=== PATIENT | female | born 1935 | race Caucasian/White ===

== ENCOUNTER 2024-09-27 13:42 | Inpatient (IN) | payer OTHER, MEDICARE, SELFPAY ==
[2024-09-27 14:27] VITALS: BP 147/84; PULSE 88; RESP 18; TEMP 36.9; O2SAT 95; BMI 31.2
--- NOTE | 2024-09-27 14:38 | EKG_ITS ---
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1935 Requested By: Syeda Mata ([facility]) Yazmin Order Number: [id number] Reading MD: Syeda Mata ([facility]) Yazmin Measurements Intervals [place] Rate: 96 P: 37 CA: 172 QRS: -57 QRSD: 129 T: 117 QT: 399 QTc: 505 Interpretive Statements SINUS RHYTHM LEFT ANTERIOR FASCICULAR BLOCK [QRS AXIS <= -45, QR IN I, RS IN II] LEFT VENTRICULAR HYPERTROPHY AND ST-T CHANGE [VOLTAGE CRITERIA PLUS ST/T ABNORMALITY] POSSIBLE ANTEROSEPTAL MYOCARDIAL INFARCTION , POSSIBLY ACUTE [30 ms Q WAVE IN V1-V4] ACUTE VA Compared to ECG 03/12/2024 15:07:56 Left anterior fascicular block now present Sinus bradycardia no longer present Left-axis deviation no longer present ST (T wave) deviation still present Myocardial infarct finding still present /store/S0/[id number].pdf
--- NOTE | 2024-09-27 14:38 | XR_ITS ---
Examination: PA chest single view TECHNIQUE: Upright PA chest single view Exam date and time: September 27, 2024 1443 hours INDICATIONS: Onset chest pain today. FINDINGS: The film is mislabeled right to left Mild heart failure Mild enlargement cardiac contour with prominent vascular congestion and perihilar basilar edema Moderate osteopenia IMPRESSION: Mild CHF
--- NOTE | 2024-09-27 14:38 | PD.EDRME ---
Rapid Medical Screening Exam RME Arrival date/time: 09/27/24 13:42 89-year-old female presents to the emergency department complaints of shortness of breath, chest pain 3 days. I have greeted and performed a focused initial assessment of this patient. Initial appropriate labs ordered at this time. A comprehensive ED assessment and evaluation of the patient and analysis of all test and completion of medical decision making process will be conducted by additional ED provider. Chief Complaint: Shortness of Breath/Dyspnea Time Seen by Provider: 09/27/24 13:59 Vital signs: Vital Signs Temperature 98.5 F 09/27/24 14:27 Pulse Rate 88 09/27/24 14:27 Respiratory Rate 18 09/27/24 14:27 Blood Pressure 147/84 H 09/27/24 14:27 Pulse Oximetry (%) 95 09/27/24 14:27 Oxygen Delivery Method Room Air 09/27/24 14:27
[2024-09-27 15:15] LABS: Basophils # (Auto) 0.1 Thou/mm3 (0.0-0.2); Basophils % (Auto) 1 % (0-2.5); Eosinophils # (Auto) 0.1 Thou/mm3 (0.0-0.5); Eosinophils % (Auto) 1 % (0-10); Hematocrit 30.9 % (36.0-46.0); Hemoglobin 10.2 g/dL (12.0-16.0); Immature Granulocytes % (Auto) 1 % (0-0); Immature Granulocytes Auto 0.08 Thou/mm3 (0.00-0.00); Lymphocytes # (Auto) 0.6 Thou/mm3 (1.0-4.8); Lymphocytes % (Auto) 5 % (10-50); Mean Corpuscular Volume 61 fL (80-100); Monocytes # (Auto) 1.1 Thou/mm3 (0.0-0.8); Monocytes % (Auto) 10 % (0-12); Neutrophils # (Auto) 8.7 Thou/mm3 (1.8-7.7); Neutrophils % (Auto) 82 % (37-80); Nucleated Red Blood Cell # 0.04 Thou/mm3 (0.00-0.00); Nucleated Red Blood Cell % 0 /100 WBC (0); Platelet Count 223 Thou/mm3 (140-440); RDW Standard Deviation 34.4 fL (36.4-46.3); Red Blood Count 5.09 Miln/mm3 (4.00-5.20); White Blood Count 10.6 Thou/mm3 (3.6-11.0)
[2024-09-27 15:25] LABS: INR 1.1 (0.9-1.3); Prothrombin Time 11.5 Seconds (9.0-12.2)
[2024-09-27 15:31] LABS: B-Type Natriuretic Peptide > 3280 pg/mL (0-100)
[2024-09-27 15:47] LABS: Alanine Aminotransferase 10 U/L (10-49); Albumin, Serum 4.2 gm/dL (3.4-4.8); Albumin/Globulin Ratio 1.8 (1.2-2.2); Alkaline Phosphatase 54 U/L (46-116); Anion Gap 14 (7-16); Aspartate Amino Transferase 40 U/L (0-34); BUN/Creatinine Ratio 13 Ratio (12-20); Bilirubin,Total 1.6 mg/dL (0.3-1.2); Blood Urea Nitrogen 13 mg/dL (9-23); Calcium 9.5 mg/dL (8.3-10.6); Calcium (Corrected) 9.5 mg/dL (8.5-10.1); Carbon Dioxide 22.6 mMol/L (20.0-31.0); Chloride 105 mMol/L (98-107); Estimated Creatinine Clearance 34.6 mL/min (>60); Globulin 2.3 gm/dL (2.3-3.5); Glucose 112 mg/dL (74-106); Lipase 25 U/L (12-53); Magnesium 1.5 mg/dL (1.6-2.6); Osmolality,Calculated 284 (275-295); Potassium 3.8 mMol/L (3.4-5.1); Sodium 142 mMol/L (136-145); Total Protein 6.5 gm/dL (5.7-8.2); eGFR 54 See Note
[2024-09-27 16:12] LABS: Troponin I 1.354 ng/mL (0.0-0.045)
[2024-09-27 16:49] VITALS: BP 145/85; PULSE 95; RESP 18; TEMP 36.7; O2SAT 95
--- NOTE | 2024-09-27 17:35 | EKG_ITS ---
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: : 1935 Requested By: Yadira Marin Order Number: [id number] Reading MD: Yadira Marin Measurements Intervals [place] Rate: 94 P: 34 RI: 166 QRS: -58 QRSD: 134 T: 123 QT: 405 QTc: 509 Interpretive Statements SINUS RHYTHM POSSIBLE LEFT ATRIAL ENLARGEMENT [-0.1mV P-WAVE IN V1/V2] INTRAVENTRICULAR CONDUCTION DELAY [130+ ms QRS DURATION] LEFT VENTRICULAR HYPERTROPHY AND ST-T CHANGE [VOLTAGE CRITERIA PLUS ST/T ABNORMALITY] POSSIBLE ANTEROSEPTAL MYOCARDIAL INFARCTION , OF INDETERMINATE AGE [30 ms Q WAVE IN V1-V4] Compared to ECG 09/27/2024 14:55:31 Intraventricular conduction delay now present Left anterior fascicular block no longer present ST (T wave) deviation still present Myocardial infarct finding still present /store/S0/[id number].pdf
[2024-09-27 18:10] VITALS: BP 150/95; PULSE 100; RESP 20; TEMP 36.8; O2SAT 95
--- NOTE | 2024-09-27 18:33 | EDNOTE_ITS ---
ED SOB =RME/HPI General Chief Complaint: Shortness of Breath/Dyspnea Stated Complaint: TROUBLE BREATHING Time Seen by Provider: 09/27/24 13:59 Arrival date/time: 09/27/24 13:42 89-year-old female presents to the ED with a complaint of shortness of breath. She has had an ongoing cough. She has also had associated chest pain x3 days that comes at rest and is relieved by changing positions or moving . The pain is described as a dull ache, and is non-radiating. She describes the pain as a 5/10 at its worst, and is currently 0/10. She indicates the pain in the center of her chest has been ongoing and her business law instructor is aware of it. Limitations: no limitations RME / HPI RME / HPI Narrative: 09/27/24 13:42 89-year-old female presents to the emergency department complaints of shortness of breath, chest pain 3 days. I have greeted and performed a focused initial assessment of this patient. Initial appropriate labs ordered at this time. A comprehensive ED assessment and evaluation of the patient and analysis of all test and completion of medical decision making process will be conducted by additional ED provider. Complaint: shortness of breath and cough Onset (ago): day(s) (3) Severity: moderate Consistency/Duration: now resolved Relieving factors: other (Changing position) Exacerbating factors: nothing Associated symptoms: chest pain and cough Treatment prior to arrival: none Related Data Home Medications ?Medication ?Instructions ?Recorded ?Confirmed levothyroxine 75 mcg tablet 75 mcg PO QDAY 11/26/20 atenolol 50 mg tablet 50 mg PO QDAY 03/12/2403/12 Held on 03/13/24. Instructions: Resume on 03/27/24. Hold until follow up with your Client Engagement Manager diltiazem HCl 180 mg 180 mg PO QDAY 03/12/2402/25 capsule,extended release 24 hr Held on 03/13/24. Instructions: Resume on 03/27/24. Hold until follow up with your Client Engagement Manager diltiazem HCl 180 mg mg PO 03/12/24 03/12/24 capsule,extended release 24 hr Held on 03/13/24. Instructions: Resume on 03/27/24. Hold until follow up with your Client Engagement Manager losartan 100 mg tablet 100 mg PO QDAY 03/12/2402/25 oxybutynin chloride 10 mg 10 mg PO QDAY 03/12/2403/12 tablet,extended release 24 hr timolol maleate 0.5 % eye drops drp ophthalmic (eye) 0 03/13/24 Previous Rx's ?Medication ?Instructions ?Recorded sennosides 8.6 mg-docusate sodium 1 tab-cap PO QDAY MT N constipation 11/18/23 50 mg tablet (Colace 2-In-1) #30 tabs aspirin 81 mg tablet,delayed 81 mg PO QDAY #30 tabs release atorvastatin 40 mg tablet 40 mg PO HS #30 tabs 4 clopidogrel 75 mg tablet 75 mg PO QDAY stroke prevent ion 03/13/24 #30 tabs hydralazine 50 mg tablet 50 mg PO TID #90 tabs Allergies Allergy/AdvReac Type Severity Reaction Status Date / Time No Known Allergies Allergy Verified 09/27/24 13:43 Review of Systems Review of Systems Systems Reviewed: All systems reviewed, normal except as documented Constitutional Constitutional: Denies chills Cardiovascular Cardiovascular: Reports as per HPI, Reports chest pain at rest, Reports dyspnea, Reports dyspnea on exertion, Reports leg edema, Denies orthopnea, Denies palpitations and Denies radiating jaw, neck or arm pain Respiratory Respiratory: Reports as per HPI, Reports cough, Reports dyspnea and Reports dyspnea on exertion Gastrointestinal Gastrointestinal: Denies constipation, Denies dyspepsia, Denies nausea and Denies vomiting Endocrine Endocrine: Denies palpitations ED Exam General Limitations: Present no limitations General appearance: Present alert and in no apparent distress Head Head exam: Present atraumatic and normocephalic Eye Eye exam: Present normal appearance; Absent conjunctival injection Neck Neck exam: Present normal inspection Chest Chest inspection: Present normal inspection and symmetric chest wall rise; Absent tenderness Expanded Respiratory Exam Location: Left: decreased breath sounds, Right: rhonchi and decreased breath sounds and Lower: rhonchi and decreased breath sounds Cardiovascular Cardiovascular exam: Present regular rate, normal rhythm and normal heart sounds Abdominal Exam Abdominal exam: Present soft and normal bowel sounds; Absent distention or tenderness Extremities Exam Extremities exam: Present pedal edema and other (pitting pretibial edema R>L); Absent calf tenderness Neurological Exam Neurological exam: Present alert and oriented X3 Psychiatric Psychiatric exam: Present normal affect and normal mood Skin Skin exam: Present warm, dry and intact Course Orders Category Date Time Status EKG (ED ONLY) *Do not use* NOW Care 09/27/24 14:38 Completed EKG (ED ONLY) *Do not use* NOW Care 09/27/24 17:36 Completed EKG (ED Only) Stat Exams 09/27/24 14:38 Draft EKG (ED Only) Stat Exams 09/27/24 17:35 Ordered XR chest 1V portable Stat Exams 09/27/24 14:38 Completed B-Type Natriuretic Peptide Stat Lab 09/27/24 14:50 Completed CBC Stat Lab 09/27/24 14:50 Completed Comprehensive Metabolic Panel Stat Lab 09/27/24 14:50 Completed Lipase Stat Lab 09/27/24 14:50 Completed Magnesium Stat Lab 09/27/24 14:50 Completed Prothrombin Time with INR Stat Lab 09/27/24 14:50 Completed Troponin I Stat Lab 09/27/24 14:50 Completed Troponin I Stat Lab 09/27/24 18:12 Received Vital Signs Vital signs: Vital Signs Temperature 98.5 F 09/27/24 14:27 Pulse Rate 88 09/27/24 14:27 Respiratory Rate 18 09/27/24 14:27 Blood Pressure 147/84 H 09/27/24 14:27 Pulse Oximetry (%) 95 09/27/24 14:27 Oxygen Delivery Method Room Air 09/27/24 14:27 Discharge Plan Prescriptions/Referrals Prescriptions/Med Rec: No Action levothyroxine 75 mcg Tablet 75 mcg PO QDAY sennosides-docusate sodium [Colace 2-In-1] 8.6-50 mg tablet 1 tab-cap PO QDAY PRN (Reason: constipation) Qty: 30 0RF oxybutynin chloride 10 mg tablet extended release 24hr 10 mg PO QDAY diltiazem HCl 180 mg capsule,extended release 24hr PO Patient Comments: take 1 capsule by mouth once daily diltiazem HCl 180 mg capsule,extended release 24hr 180 mg PO QDAY losartan 100 mg tablet 100 mg PO QDAY Patient Comments: take 1 tablet by mouth once daily atenolol 50 mg tablet 50 mg PO QDAY timolol maleate 0.5 % drops OPHTHALMIC (EYE) atorvastatin 40 mg tablet 40 mg PO HS Qty: 30 0RF aspirin 81 mg Tablet,Delayed Release (Dr/Ec) 81 mg PO QDAY Qty: 30 0RF hydralazine 50 mg tablet 50 mg PO TID Qty: 90 0RF clopidogrel 75 mg tablet 75 mg PO QDAY Qty: 30 0RF Referrals: Miya Orlando MD [Primary Care Provider] - In 1 week Patient/Caregiver Discharge Instructions Print Language: Mosotho
[2024-09-27 19:40] LABS: Troponin I 1.926 ng/mL (0.0-0.045)
--- NOTE | 2024-09-27 22:53 | ESHP_ITS ---
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 She reported that she has been having difficulty ambulating, for past couple of days and thought of coming to the ED. She is ambulatory at baseline, and get some help from her rod drawer. She also reported that that she has been having on and off chest pain lasting 2 to 3 seconds frequently, and that improves after changing her body position. She denied any orthopnea, headache, any radiating pain towards her left arm, but reported that she fell couple months ago, on her left arm, and after that she has been having left arm pain. She denied any abdominal pain, or any changes in bowel or bladder habit. She denied any fever or chills, nausea or vomiting. In the ED her vitals were stable, with blood pressure 147/84 labs significant for hemoglobin 10.2, MCV 61, chemistry panel revealed creatinine 1.0, GFR 54, blood sugar 112, magnesium 1.5, total bilirubin 1.6, AST 40, troponin 1.354 that trended up to 1.926, BNP greater than 3280, chest x-ray revealed mild CHF and EKG was significant for mild ST segment elevation in V1 and V2, discussed with Dr. Guy, reported that the patient's EKG is significant for recent old CT, but not STEMI. PMH: As mentioned above SHX: Tonsillectomy, cholecystectomy, appendectomy, hysterectomy, bladder suspension surgery, eye surgery Family history: Heart disease Social history: Denies smoking, alcohol or drug abuse. She follows up with channel development manager Dr. Moreno, but he is out of town and Dr. Guy was consulted. He recommended admitting the patient in telemetry unit and starting aspirin 325 mg x 1, Lasix 40 Mg IV x 1, and starting on heparin drip. Review of Systems Review of Systems Systems Reviewed: All systems reviewed, normal except as documented Exam Vital Signs Temp Pulse Resp BP Pulse Ox O2 Del Method 98.3 F 100 20 150/95 H 95 Room Air 09/27/24 18:10 04/03/25 18:10 09/27/24 18:10 09/27/24 18:10 09/27/24 18:10 09/27/24 16:49 Narrative Exam General: No acute distress, Alert and Oriented x 3 HEENT: Moist mucous membranes, oropharynx clear Neck: Supple, No masses, No JVD CVS: S1S2 Regular rate and rhythm, No murmurs, rubs or gallops Lungs: Bibasilar cracles +, no wheeze no rhonchi Abd: Soft, NT/ND, +BS, no organomegaly Ext: 1+ below knee pitting edema, warm and well perfused, diminished peripheral pulses Skin: No rash Psych: Appropriate mood and affect Results: Labs 09/28/24 02:58 09/28/24 02:58 Labs: Short CBC 09/27/24 Range/Units 14:50 WBC 10.6 (3.6-11.0) Thou/mm3 Hgb 10.2 L (12.0-16.0) g/dL Hct 30.9 L (36.0-46.0) % Plt Count 223 (140-440) Thou/mm3 BMP 09/27/24 14:50 Sodium 142 Potassium 3.8 Chloride 105 Carbon Dioxide 22.6 BUN 13 Creatinine 1.0 Glucose 112 H Calcium 9.5 Cardiac Enzymes 09/27/24 09/27/24 Range/Units 14:50 18:12 Troponin I 1.354 H* 1.926 H* D (0.0-0.045) ng/mL Liver Function 09/27/24 Range/Units 14:50 Total Bilirubin 1.6 H (0.3-1.2) mg/dL AST 40 H (0-34) U/L ALT 10 (10-49) U/L Alkaline Phosphatase 54 (46-116) U/L Albumin 4.2 (3.4-4.8) gm/dL Quality Measures Quality Measures VTE prophylaxis Advance care planning discussed with:: patient Medications Home Medications and Allergies Home Medications ?Medication ?Instructions ?Recorded ?Confirmed ?Type levothyroxine 75 mcg tablet 75 mcg PO QDAY 11/26/20 History atenolol 50 mg tablet 50 mg PO QDAY 03/12/2403/12 History Held on 03/13/24. Instructions: Resume on 03/27/24. Hold until follow up with your Casting And Locker Room Servicer diltiazem HCl 180 mg 180 mg PO QDAY 03/12/2402/25 History capsule,extended release 24 hr Held on 03/13/24. Instructions: Resume on 03/27/24. Hold until follow up with your Casting And Locker Room Servicer diltiazem HCl 180 mg mg PO 03/12/24 03/12/24 Hist ory capsule,extended release 24 hr Held on 03/13/24. Instructions: Resume on 03/27/24. Hold until follow up with your Casting And Locker Room Servicer losartan 100 mg tablet 100 mg PO QDAY 03/12/2402/25 History oxybutynin chloride 10 mg 10 mg PO QDAY 03/12/2403/12 History tablet,extended release 24 hr timolol maleate 0.5 % eye drops drp ophthalmic (eye) 0 03/13/24 History Allergies Allergy/AdvReac Type Severity Reaction Status Date / Time No Known Allergies Allergy Verified 09/27/24 13:43 Visit Medications Aspirin (Aspirin Ec 81 Mg Tabec) 81 mg PO HS LUIS Stop: 10/28/24 20:59 Atorvastatin Calcium (Atorvastatin Calcium 10 Mg Tablet) 40 mg PO QDAY LUIS Stop: 10/28/24 08:59 Heparin Sodium (Porcine) (Heparin Sod Inj 5000 Unit/Ml Vial) 4,000 unit IV X1 ONE; Protocol Stop: 09/27/24 22:07 Heparin Sodium/Dextrose (Heparin In D5w Ivpb) 25,000 unit in 250 mls @ 8.709 mls/hr IV .Q24H LUIS; Protocol Stop: 10/11/24 22:14 Magnesium Sulfate (Magnesium Sulfate Ivpb) 4 gm in 50 mls @ 12.5 mls/hr IV X1 ONE Stop: 09/28/24 02:47 Discontinued Medications Aspirin (Aspirin 81 Mg Chew) 324 mg PO X1 ONE Stop: 09/27/24 22:10 Furosemide (Furosemide Inj 10 Mg/Ml 4ml Vial) 40 mg IVP X1 ONE Stop: 09/27/24 22:10 Assessment & Plan Plan The patient is an 89-year-old female with significant past medical history of hyperlipidemia, peripheral vascular disease, essential hypertension, hypothyroidism, IBS, 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 Patient is admitted for further management of ACS. #ACS DDx: More likely NSTEMI versus less likely STEMI with possible multivessel disease The patient presented with worsening of SOB for past couple of days, has been having central chest pain and for last couple of months that improves on reposition, likely NSTEMI 2 to 3 days ago after which she developed SOB. EKG was significant for [address] segment elevation in V1 and V2, but Dr. Guy reported that the patient's EKG is significant for recent old CT, but not STEMI Initial tropes were 1.354 that trended up to 1.926 Received aspirin 325 mg x 1, and was started on heparin drip, received Lasix 40 Mg IV x 1. - Continue on heparin drip - Aspirin 81 Mg daily at night - Atorvastatin 80 Mg daily at night - Beta-zarina not started due to possible new onset CHF exacerbation -Casting And Locker Room Servicer Dr. Guy consulted, will proceed with cardiac cath around 11:30 AM on 09/28/2024 - N.p.o. after midnight - Maintain potassium greater than 4 and magnesium greater than 2 -Daily a.m. labs for CBC, CMP and electrolytes - Troponin every 4 hourly until delta is achieved -TTE ordered -Monitor closely #New onset CHF exacerbation Likely secondary to ischemic cardiomyopathy DDx: HFrEF versus HFpEF, TTE done on 2018 revealed LVEF 60%, no recent echo on EMR Chest x-ray significant for mild CHF, patient complained of SOB on exertion, BNP greater than 3280 - Received Lasix 40 Mg IV x 1, may consider adding further doses after evaluating in the morning -Strict ins and outs - Cardiac diet with fluid restriction of 1200 cc/day - TTE ordered #Mild hypomagnesemia Presented with magnesium of 1.5 - Ordered 4 g IV magnesium sulfate - Daily a.m. labs for magnesium #Microcytic anemia Likely secondary to iron deficiency anemia secondary to possible GI loss versus nutritional deficiency - Ordered, ferritin and reticulocyte count #CKD stage III A Creatinine 1.0, GFR of 54, previous GFR were less than 54 - Renally dose medications - Avoid nephrotoxic drugs - Daily AM lab for CMP and electrolyte panel #Mild hyperbilirubinemia #Mild transaminitis Denies any abdominal symptoms Total bilirubin 1.6, AST 40 - Monitor daily a.m. labs for liver panel #Essential hypertension #PVD #Hyperlipidemia - Started on atorvastatin 80 Mg daily at night - Continue to monitor blood pressure #Hypothyroidism - Resume home medication after medication reconciliation Health maintenance: Dispo: Patient admitted to telemetry unit for further management of ACS Diet: Cardiac diet, n.p.o. after midnight DVT prophylaxis: On heparin drip CODE STATUS: DNR The patient's management plan was discussed with my attending physician MD Chintan Kelly MD, PGY2 Attending Provider Attestation/Addendum I attest that I was physically present for the evaluation, physical examination, lab and imaging review of the patient with the residents. I discussed the case with the residents and agree with the findings and plans of care as documented above. Patient is an 89 years old female with past medical history of hyperlipidemia, peripheral vascular disease, hypertension, hypothyroidism, IBS, right eye blindness, CVA who presented to the ED with complaint of shortness of breath that has been worsening for past couple of days. In the ED, blood pressure was 147/87, hemoglobin 10.2, total bilirubin 1.6, troponin 1.354 which up trended to 1.926, BNP more than 3280. Chest x-ray was done which showed mild CHF. EKG was concerning for mild ST elevation in V1 and V2. Cardiology was consulted by ED, stated that most likely NSTEMI, probable old CT, recommended inpatient admission for medical management. We will admit the patient in telemetry, start her on aspirin, heparin drip, atorvastatin. We will obtain Echocardiography. We will keep patient n.p.o. in anticipation of cardiac catheterization tomorrow. We will trend troponin and monitor her symptoms closely. Repleted magnesium, ordered strict ins and outs, fluid restriction. Patient has mild hyperbilirubinemia, we will follow-up with morning labs. Shaneka Perez MD
[2024-09-27 23:02] VITALS: BMI 29.4
[2024-09-27 23:13] LABS: Partial Thromboplastin Time 26.7 Seconds (22.0-36.0)
[2024-09-27 23:21] VITALS: BP 143/84; PULSE 93
[2024-09-27] MEDS: FUROSEMIDE INJ 10 MG/ML 4ML VIAL 40 MG IVP (23:21)
[2024-09-27] MEDS: ASPIRIN 81 MG CHEW 324 MG PO (23:21)
[2024-09-27] MEDS: Magnesium Sulfate 4 GM Ivpb 4 GM/50 ML BAG IV (23:22)
[2024-09-28] VITALS (19 sets, daily range): BP systolic 132–167; BP diastolic 72–105; PULSE 81–100; RESP 10–25; TEMP 35.7–36.3; O2SAT 93–98; BMI 27.7
--- NOTE | 2024-09-28 00:14 | ECHO_ITS ---
Transthoracic Echo Report Ht (in): 63 Wt (lb): 166 Exam Location: Echo Lab Status: Inpatient Embedded Software Design Engineer: CAROLE Martin^^^^ Indications: Procedure Performed: BP: 133 / 83 HR: 81 Technical Quality: Fair MEASUREMENTS (Male / Female) Normal Values 2D ECHO LV Diastolic Diameter PLAX 4.6 cm 4.2 - 5.9 / 3.9 - 5.3 cm LV Systolic Diameter PLAX 3.7 cm IVS Diastolic Thickness 0.8 cm 0.6 - 1.0 / 0.6 - 0.9 cm LVPW Diastolic Thickness 0.9 cm 0.6 - 1.0 / 0.6 - 0.9 cm LV Relative Wall Thickness 0.4 LVOT Diameter 1.6 cm Aortic Root Diameter 2.8 cm LA Systolic Diameter LX 3.3 cm 3.0 - 4.0 / 2.7 - 3.8 cm LV Ejection Fraction MOD BP 35.8 % >= 55 % LV Cardiac Index MOD BP 2709.2 cm?/min?m? LV Ejection Fraction MOD 4C 39.4 % LV Cardiac Index MOD 4C 3801.6 cm?/min?m? LV Ejection Fraction 4C AL 39.7 % LV Cardiac Index 4C AL 3973.7 cm?/min?m? LV Ejection Fraction MOD 2C 31.7 % LV Cardiac Index MOD 2C 1787.2 cm?/min?m? LV Ejection Fraction 2C AL 31.0 % LV Cardiac Index 2C AL 1758.1 cm?/min?m? LA Volume Index 66.0 cm?/m? 16 - 28 cm?/m? Ascending Aorta Diameter 2.2 cm DOPPLER AV Peak Velocity 140.7 cm/s AV Peak Gradient 7.9 mmHg AV Mean Gradient 5.0 mmHg AV Velocity Time Integral 24.8 cm AI Peak Velocity 288.0 cm/s AI Peak Gradient 33.2 mmHg AI Pressure Half Time 717.0 ms LVOT Peak Velocity 71.7 cm/s LVOT Peak Gradient 2.1 mmHg LVOT Velocity Time Integral 12.2 cm LVOT Cardiac Index 1071.9 cm?/min?m? AV Area Cont Eq vti 1.0 cm? AV Area Cont Eq pk 1.0 cm? MV Area PHT 4.2 cm? MR Peak Velocity 521.0 cm/s MR Peak Gradient 108.6 mmHg Mitral E Point Velocity 85.6 cm/s Mitral A Point Velocity 75.9 cm/s Mitral E to A Ratio 1.1 LV E' Lateral Velocity 5.5 cm/s Mitral E to LV E' Lateral Ratio 15.6 LV E' Septal Velocity 4.0 cm/s Mitral E to LV E' Septal Ratio 21.7 TR Peak Velocity 350.3 cm/s TR Peak Gradient 49.1 mmHg PV Peak Velocity 86.1 cm/s PV Peak Gradient 3.0 mmHg FINDINGS Left Ventricle Left ventricle appears dilated extensive anteroapical septal and apical akinesis with severe left ventricle systolic dysfunction ejection fraction approximately 20 to 25%. Right Ventricle The right ventricle is normal in size and systolic function. The estimated right ventricular systolic pressure is moderately elevated, 50 mmHg. Left Atrium Moderately increased left atrial volume 66 mL/m?. Right Atrium The right atrial cavity size is mildly increased. Atrial Septum The interatrial septum appears normal with no evidence of a shunt. Aorta The aorta is normal by two-dimensional, color flow and Doppler interrogation. Mitral Valve Moderate mitral regurgitation. Mild mitral annular calcification. Aortic Valve Aortic valve sclerosis. Mild aortic valve regurgitation. Tricuspid Valve There is mild to moderate tricuspid valve regurgitation. Pulmonic Valve Trivial pulmonic valve regurgitation. Vessels The pulmonary artery appears normal. The inferior vena cava pulmonary and hepatic veins appear normal. Pericardium The pericardium is normal by two-dimensional imaging. There is no significant pericardial effusion. CONCLUSIONS indication: New onset CHF Dilated left ventricle with extensive anteroseptal apical akinesis with ischemic cardiomyopathy severe LV systolic dysfunction LV left ventricle ejection fraction approximately 20 to 25%. RV appears normal with elevated RVSP 50 mmHg. LA is moderately dilated Mitral annulus calcification mild to moderate mitral regurgitation Aortic valve sclerosis no significant stenosis. Mild to moderate tricuspid valve regurgitation. Livier Macedo (Electronically Signed) Final Date: 28 September 2024 16:42
[2024-09-28] MEDS: Heparin/D5w 25K 250 ML Ivpb 25,000 UNIT/250 ML BAG 9.052 UNIT IV (02:40)
[2024-09-28] MEDS: HEPARIN SOD INJ 5000 UNIT/ML VIAL 4000 UNIT IV ×2 (02:53→15:48)
[2024-09-28 03:09] LABS: Basophils % (Auto) 0 % (0-2.5); Eosinophils # (Auto) 0.1 Thou/mm3 (0.0-0.5); Eosinophils % (Auto) 1 % (0-10); Hematocrit 29.7 % (36.0-46.0); Immature Granulocytes % (Auto) 2 % (0-0); Immature Granulocytes Auto 0.14 Thou/mm3 (0.00-0.00); Lymphocytes # (Auto) 0.7 Thou/mm3 (1.0-4.8); Lymphocytes % (Auto) 7 % (10-50); Mean Corpuscular HGB Conc 33.7 g/dl (31.0-37.0); Mean Corpuscular Hemoglobin 20.4 pg (25.0-35.0); Mean Corpuscular Volume 61 fL (80-100); Monocytes # (Auto) 1.2 Thou/mm3 (0.0-0.8); Monocytes % (Auto) 12 % (0-12); Neutrophils # (Auto) 7.5 Thou/mm3 (1.8-7.7); Neutrophils % (Auto) 79 % (37-80); Nucleated Red Blood Cell # 0.05 Thou/mm3 (0.00-0.00); Nucleated Red Blood Cell % 1 /100 WBC (0); Platelet Count 219 Thou/mm3 (140-440); RDW Standard Deviation 34.7 fL (36.4-46.3); White Blood Count 9.6 Thou/mm3 (3.6-11.0)
[2024-09-28 03:21] LABS: Glucose Estimated Average 103 mg/dL (80-131); Hemoglobin A1C 5.2 % Hgb (4.8-6.0)
[2024-09-28 03:31] LABS: Alanine Aminotransferase 12 U/L (10-49); Albumin, Serum 4.3 gm/dL (3.4-4.8); Albumin/Globulin Ratio 1.9 (1.2-2.2); Alkaline Phosphatase 53 U/L (46-116); Anion Gap 17 (7-16); Aspartate Amino Transferase 59 U/L (0-34); BUN/Creatinine Ratio 15 Ratio (12-20); Bilirubin,Total 1.6 mg/dL (0.3-1.2); Blood Urea Nitrogen 16 mg/dL (9-23); Calcium 10.1 mg/dL (8.3-10.6); Calcium (Corrected) 10.1 mg/dL (8.5-10.1); Carbon Dioxide 23.5 mMol/L (20.0-31.0); Chloride 103 mMol/L (98-107); Creatinine (Component) 1.1 mg/dL (0.6-1.3); Estimated Creatinine Clearance 34.4 mL/min (>60); Globulin 2.3 gm/dL (2.3-3.5); Glucose 124 mg/dL (74-106); Magnesium 2.8 mg/dL (1.6-2.6); Osmolality,Calculated 287 (275-295); Phosphorous 3.6 mg/dL (2.4-5.1); Potassium 3.8 mMol/L (3.4-5.1); Sodium 143 mMol/L (136-145); Total Protein 6.6 gm/dL (5.7-8.2); eGFR 48 See Note
[2024-09-28 03:44] LABS: Cardiac Risk Estimate 3.7 RATIO (3.7-5.6); Cholesterol 115 mg/dL (132-200); HDL Cholesterol 31 mg/dL (40-60); LDL Cholesterol,Calculated 64 mg/dL (0-130); Triglycerides 101 mg/dL (30-150)
--- NOTE | 2024-09-28 03:51 | PC.NURSE ---
Dr. Tate made aware that lab called RN saying that patients troponin is critically high at 3.760. No new orders.
[2024-09-28 04:02] LABS: Ferritin 28 ng/mL (7.3-270.7); Iron 80 mcg/dL (50-170); Percent Iron Saturation 22 % (20-55); Total Iron Binding Capacity 354 mcg/dL (250-425); Unsaturated Iron Binding 274 (225-295)
[2024-09-28 08:32] LABS: Lactate (Lactic Acid) 2.7 mMol/L (0.4-2.0)
[2024-09-28 09:11] LABS: Troponin I 5.031 ng/mL (0.0-0.045)
--- NOTE | 2024-09-28 09:17 | PC.NURSE ---
notified for Troponin 5.031
--- NOTE | 2024-09-28 10:00 | PC.SS ---
Update: Plan is for patient to obtain heart cath today. Patient on Heparin drip.
[2024-09-28 10:10] LABS: Partial Thromboplastin Time 75.2 Seconds (22.0-36.0)
--- NOTE | 2024-09-28 10:45 | ESPR_ITS ---
<Statement entered by Demetris Quick MD - 09/29/24 07:19> Senior Resident Attestation: I supervised/discussed management plan with procurement intern physician Dr. Riggins, and was involved in the care of this patient. I personally saw and examined the patient and discussed the assessment and plan with the entire medicine team, including my attending. I agree with the assessment and plan as documented. Patient's care was discussed with attending physician, Dr. Johnson. Demetris Quick MD PGY-2. 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 States that she has been having difficulty ambulating with associated chest discomfort that she describes as substernal and pressure-like that does not radiate. Denies orthopnea and paroxysmal nocturanl dyspnea. 09/28: Seen and examined at bedside. Patient sitting comfortably in bed on room air and does not endorse any chest discomfort. After [facility], now requesting transfer on behalf of cardiology recommendations to [facility] for cardiac thoracic surgery consultation due to findings; which included critical 95% stenosis in distal left main coronary artery and proximal left anterior descending artery, indication for CABG. Additonal findings include EF 20 to 25%, severe anterolateral apical hypokinesis, elevated left ventricular end- diastolic pressure. After procedure, aspirin and heparin will be continued with addition of Lasix. Transfer orders and DC summary placed. Exam Vital Signs Temp Pulse Resp BP Pulse Ox O2 Del Method 97.2 F 94 25 H 155/96 H 96 Room Air 09/28/24 08:00 09/28/24 10:34 09/28/24 10:34 09/28/24 10:34 09/28/24 10:34 09/28/24 10:34 Narrative Exam General: AOx3, no acute distress, able to speak full sentences HEENT: NC/AT, mucous membranes moist, bilateral sclera anicteric Cardiovascular: regular rate and rhythm, S1/S2 present, no murmurs appreciated Pulmonary: clear to auscultation bilaterally, no rales/rhonchi/wheezes Abdominal: soft, non-tender, non-distended, no rebound/guarding, normal bowel sounds present Musculoskeletal: 1+ bilateral lower extremity edema Skin: warm and dry, intact, no rashes Neuro: CN II-XII intact, no focal deficits Objective Labs 09/29/24 05:30 09/29/24 05:30 Labs: Laboratory Results - last 24 hr 09/27/24 09/27/24 09/27/24 14:50 18:12 22:25 WBC 10.6 RBC 5.09 Hgb 10.2 L Hct 30.9 L MCV 61 L MCH 20.0 L MCHC 33.0 RDW Std Deviation 34.4 L Plt Count 223 Neut % (Auto) 82 H Lymph % (Auto) 5 L [place] % (Auto) 10 Eos % (Auto) 1 Baso % (Auto) 1 Neut # (Auto) 8.7 H Lymph # (Auto) 0.6 L [place] # (Auto) 1.1 H Eos # (Auto) 0.1 Baso # (Auto) 0.1 Immature Gran # (Auto) 0.08 H Absolute Nucleated RBC 0.04 H Immature Gran % 1 H Nucleated RBC % 0 PT 11.5 INR 1.1 APTT 26.7 Sodium 142 Potassium 3.8 Chloride 105 Carbon Dioxide 22.6 Anion Gap 14 BUN 13 Creatinine 1.0 Estim Creat Clear Calc 34.6 L eGFR 54 L BUN/Creatinine Ratio [address] Glu mg/dL Hemoglobin A1c Calculated Osmolality 284 Lactic Acid Calcium 9.5 Corrected Calcium 9.5 Phosphorus Magnesium 1.5 L Iron TIBC Iron Saturation Unsat Iron Binding Ferritin Total Bilirubin 1.6 H AST 40 H ALT 10 Alkaline Phosphatase 54 Troponin I 1.354 H* 1.926 H* D 3.090 H* D B-Natriuretic Peptide > 3280 H* Total Protein 6.5 Albumin 4.2 Globulin 2.3 Albumin/Globulin Ratio 1.8 Triglycerides Cholesterol LDL Cholesterol, Calc HDL Cholesterol Cholesterol/HDL Ratio Lipase 09/28/24 09/28/24 09/28/24 02:58 08:17 09:25 WBC 9.6 RBC 4.90 Hgb 10.0 L Hct 29.7 L MCV 61 L MCH 20.4 L MCHC 33.7 RDW Std Deviation 34.7 L Plt Count 219 Neut % (Auto) 79 Lymph % (Auto) 7 L [place] % (Auto) 12 Eos % (Auto) 1 Baso % (Auto) 0 Neut # (Auto) 7.5 Lymph # (Auto) 0.7 L [place] # (Auto) 1.2 H Eos # (Auto) 0.1 Baso # (Auto) 0.0 Immature Gran # (Auto) 0.14 H Absolute Nucleated RBC 0.05 H Immature Gran % 2 H Nucleated RBC % 1 H PT INR APTT 75.2 H D Sodium 143 Potassium 3.8 Chloride 103 Carbon Dioxide 23.5 Anion Gap 17 H BUN 16 Creatinine 1.1 Estim Creat Clear Calc 34.4 L eGFR 48 L BUN/Creatinine Ratio [address]ucose [address] Glu mg/dL 103 Hemoglobin A1c 5.2 Calculated Osmolality 287 Lactic Acid 2.7 H Calcium 10.1 Corrected Calcium 10.1 Phosphorus 3.6 Magnesium 2.8 H Iron 80 TIBC 354 Iron Saturation 22 Unsat Iron Binding 274 Ferritin 28 Total Bilirubin 1.6 H AST 59 H ALT 12 Alkaline Phosphatase 53 Troponin I 3.760 H* D 5.031 H* D B-Natriuretic Peptide Total Protein 6.6 Albumin 4.3 Globulin 2.3 Albumin/Globulin Ratio 1.9 Triglycerides 101 Cholesterol 115 L LDL Cholesterol, Calc 64 HDL Cholesterol 31 L Cholesterol/HDL Ratio 3.7 Lipase Quality Measures Quality Measures VTE prophylaxis Advance care planning discussed with:: patient Assessment & Plan Assessment Current Active Medications: Generic Name Dose Route Start Last Admin Trade Name Freq PRN Reason Stop Dose Admin Aspirin 81 mg 09/28/24 21:00 Aspirin Ec 81 Mg Tabec PO 10/28/24 20:59 HS LUIS Atorvastatin Calcium 40 mg 09/28/24 09:00 09/28/24 08:00 Atorvastatin Calcium 20 Mg Tablet PO 10/28/24 08:59 Not Given QDAY LUIS Heparin Sodium/Dextrose 25,000 unit in 250 mls @ 9.052 mls/hr 09/27/24 23:45 09/28/24 02:40 Heparin In D5w Ivpb IV 10/11/24 23:44 12 units/kg/hr .Q24H LUIS 9.052 mls/hr Administration Protocol 12 UNITS/KG/HR Plan Grecia Bacon is an 89-year-old female with PMHx of hyperlipidemia, peripheral vascular disease, essential hypertension, hypothyroidism, IBS, 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 States that she has been having difficulty ambulating with associated chest discomfort that she describes as substernal and pressure-like that does not radiate. Denies orthopnea and paroxysmal nocturanl dyspnea. Admitted for management of ACS. #Acute coronary syndrome Presents with shortness of breath and chest discomfort associated with activity, substernal, pressure-like. Troponin uptrending, currently peaked at 5.0. BNP greater than 3000. LDL 64. EKG showed ST elevations in leads V1 and V2. However, Dr. Guy reported that EKG is significant for subacute DE, but not STEMI. Received aspirin 325 mg x 1 and started on heparin drip. Also received Lasix 40 mg IV x 1. ? Cardiology consulted, appreciate recommendations ? Status post cardiac cath 09/28 showing left main disease and pending transfer ? Continue heparin drip, aspirin 81 mg, atorvastatin 40 mg ? Keep K > 4, Mg > 2 ? Follow-up echo #New onset CHF, likely secondary to ischemic cardiomyopathy DDx: HFrEF versus HFpEF, TTE done on 2018 revealed LVEF 60%, no recent echo on EMR Chest x-ray significant for mild CHF, patient complained of SOB on exertion, BNP > 3280 ? Cardiology consulted ? Follow-up echo ? Consider Lasix ? Strict I's and O's, fluid restriction (1.2 L/day) #Mild hypomagnesemia Presented with magnesium of 1.5 Repleted with 4 g IV magnesium sulfate ? Daily a.m. labs for magnesium #Microcytic anemia Iron panel within normal limits. #CKD stage III A Creatinine 1.0, GFR of 48, previous GFR were less than 54 ? Renally dose medications ? Avoid nephrotoxic drugs ? Daily AM lab for CMP and electrolyte panel #Mild hyperbilirubinemia #Mild transaminitis Denies any abdominal symptoms Total bilirubin 1.6, AST 40 ? Monitor daily a.m. labs for liver panel #Essential hypertension #PVD #Hyperlipidemia ? Started on atorvastatin 40 mg daily at night ? Continue to monitor blood pressure #Hypothyroidism ? Resume home medication after medication reconciliation Hospital management: Disposition: pending transfer to [facility] thoracic surgery consultation Diet: NPO for cardiac cath Lines: PIV DVT prophylaxis: heparin drip GI prophylaxis: pantoprazole CODE STATUS: DNR ----- Plan discussed with attending physician Dr. Alex Riggins MD PGY-1 Internal Medicine Attending Provider Attestation/Addendum Face to face evaluation was performed by me. I have personally seen and examined the patient. I discussed the assessment and plan with the entire medicine team. I reviewed available medical records, imaging studies, laboratory results. I agree with the above subjective data, objective findings, assessment and plan except as corrected by me or noted below #Acute coronary syndrome #New onset CHF, likely secondary to ischemic cardiomyopathy #Essential hypertension #PVD #Hyperlipidemia #CKD stage III A Contineu meds as ordered labor relations representative with Dr Guy More than > 30 minutes spent on the encounter
--- NOTE | 2024-09-28 10:54 | PC.SS ---
ASSEMBLY LEADER attempted bedside contact with patient. Patient at sanitation laborer undergoing [facility] cath procedure.
[2024-09-28 11:27] LABS: Reflex Lactate? Y
[2024-09-28 13:36] LABS: Lactic Acid, 3 HR 2.6 mMol/L (0.4-2.0)
--- NOTE | 2024-09-28 13:46 | PC.CM ---
Addendum entered by Jelena Negrete RN 09/28/24 18:47: Patient needs transfer to [facility] for cardiac thoracic surgery consultation. Dr. Guy's note states plan is for left main stent placement with unprotected left main with severe LV dysfunction, high-risk PCI of the distal left main coronary artery. I spoke to Tiff at [facility] and she states they are going to accept patient. They do not have an open beds at this time, but expect to have openings for tomorrow. Packet is completed along with signatures and CD. I handed off to night charged nurse and left packet on telemetry nurses station. Addendum entered by Jelena Negrete RN 09/28/24 17:07: [address] Jacob riggins and he spoke to Dr. Guy to verify patient needs to be transferred. I let Dr. Riggins know I already receivedI a call from the transfer nurse at [facility] and I faxed over information. I started packet and I made a CD. Original Note: I received a call from stores laborer nurse and the transfer nurse at [facility]. Both stated Dr. Guy would like patient transferred to [facility]. I asked stores laborer nurse if Dr. Guy put in orders to transfer. She states he gave her a verbal and then he left. The transfer nurse from [facility] asked me to fax over paperwork. I faxed over information at this time. I will follow up with Dr. Johnson and his team.
[2024-09-28 13:51] LABS: Partial Thromboplastin Time 21.7 Seconds (22.0-36.0)
--- NOTE | 2024-09-28 14:06 | ESOP_ITS ---
RE: UNIQUE BECKWITH : 1935 DATE OF OPERATION: 09/28/2024 PROCEDURE PERFORMED: 1. Emergency diagnostic left heart cardiac catheterization, selective coronary angiogram, and left ventricular angiogram, CPT 51135. 2. Abdominal aorta and pelvic angiogram. 3. Ultrasound-guided access, right femoral artery and right radial artery. 4. Conscious sedation 30-minute duration. 5. Selective cannulation of left internal mammary artery. DIAGNOSES: Acute non-ST segment elevation myocardial infarction, acute systolic heart failure. HISTORY AND INDICATIONS: The patient is an 89-year-old elderly female with a history of coronary artery disease, status post stent placement of the right coronary artery more than 5 years ago, hypertension, hypercholesterolemia, doing fairly well until recently. The patient apparently has progressive shortness of breath and minimal exertion, some chest discomfort in the last 2 weeks, severe shortness of breath worsening over the last 2 weeks, orthopnea, could not sleep. Came to the hospital 09/27/2024 with severe shortness of breath and was found to have suggestion of old recent anterolateral myocardial infarction with QRS complex and right QRS complex. The patient's echo showed ejection fraction 20-25%, severe anterolateral apical hypokinesis, severe LV dysfunction, troponin level elevated up to 1.9 suggestive of acute myocardial infarction and NSTEMI. Because of persistent shortness of breath and acute myocardial infarction, emergency cardiac catheterization was recommended to assess the patient is a candidate for intervention and revascularization procedures. DESCRIPTION OF PROCEDURE: The patient brought to cardiac catheterization laboratory. She was given 2 mg of Versed and 50 mcg fentanyl for sedation. Right radial artery cannulated by micropuncture technique. I could not advance the 5-Czech Glidesheath all the way. There was a small vessel, hence, I left the sheath in place, proceeded with the right femoral approach. Right femoral artery was cannulated by micropuncture technique. Ultrasound guidance was used and 5-Czech sheath was introduced. Selective right and left coronary angiogram performed by 5-Czech, FR4 and FL4 diagnostic catheter. Left heart catheterization and LV angiogram performed by FR4 diagnostic catheter. Subsequently, left internal mammary angiogram was performed. Left internal mammary angiogram was performed. Subsequently, the catheter was pulled down to the aortic bifurcation, abdominal aorta and iliac as well as pelvic angiogram was performed for assessment of iliac vessel. The patient had no complications. Manual compressions applied. Hemostasis was secured. Cardiac catheterization showed following findings. Hemodynamics: Left ventricular pressure is 160 systolic and end diastolic pressure 35 mmHg and left aortic pressure 170/80. No gradient across the aortic valve. Left ventricular angiogram showed evidence of severe anterolateral apical hypokinesis ejection fraction 20-25%. Coronary angiogram showed following findings. Right coronary artery is large and dominant showed evidence of a stent in the mid RCA, widely patent left coronary system. Left main coronary artery showed calcification in the proximal segment. Left main coronary artery in distal segment showed evidence of 95% stenosis involving the origin of left anterior descending artery. Origin of the circumflex artery is also involved. Proximal left anterior descending artery closest origin showed 95% stenosis. TAHMINA flow was 3 in both vessels. SUMMARY OF FINDINGS: 1. Widely patent stent involving right coronary artery. 2. Critical 95% stenosis in distal left main coronary artery and proximal left anterior descending artery and also origin of circumflex artery, complex lesion. 3. Severe systolic dysfunction, ejection fraction 25% with anterolateral apical akinesis. 4. Elevated left ventricular end diastolic pressure. RECOMMENDATIONS: We will give IV Lasix. Aspirin and heparin will be continued. We will continue the heparin and aspirin and Lasix will be continued. Arrangements will be made to transfer the patient to [facility] for cardiac thoracic surgery consultation. 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 Most likely we will end up doing left main stent placement with unprotected left main with severe LV dysfunction, high-risk PCI of the distal left main coronary artery, possibly over the weekend. We will discuss this with the cardiothoracic surgeon and plan the procedure over the weekend at [facility]. Arrangements will be made later today to transfer the patient either later today or tomorrow morning. Condition remains stable. She remained hemodynamically stable after the procedure. Heparin will be started right after the procedure. DT: 13:10:30 TT: 14:05:00 Ref: [id number] - TID: [id number]
--- NOTE | 2024-09-28 14:15 | ESDS_ITS ---
Planned Discharge Date 09/28/24 DS: Providers Provider Date of admission: 09/27/24 22:07 Primary care physician: Miya Orlando MD Admitting Provider: Shaneka Perez MD Attending Provider on Admission: Markel Johnson MD Consults: 09/27/24 22:10 Consult to Cardiology Stat Comment: Consulting Provider: Pita Guy Instructions: NSTEMI Attending Provider on DC: Brenton Riggins MD Discharging Provider: Brenton Riggins MD DS: Diagnosis Problem List Completed Was Problem List Reviewed/Reconciled?: Yes Hospital Course Hospital Course Hospital course: Grecia Bacon is an 89-year-old female with PMHx of CAD s/p stent placement, hyperlipidemia, peripheral vascular disease, essential hypertension, hypothyroidism, IBS, 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 States that she has been having difficulty ambulating with associated chest discomfort that she describes as substernal and pressure-like that does not radiate. Denies orthopnea and paroxysmal nocturanl dyspnea. EKG showed YUKO in leads V1 and V2. Initial troponin of 1.3 that peaked at 5.0, up until left heart cath. After [facility], now requesting transfer on behalf of cardiology recommendations to [facility] for cardiac thoracic surgery consultation due to findings; which included critical 95% stenosis in distal left main coronary artery and proximal left anterior descending artery, indication for CABG. Additonal findings include EF 20 to 25%, severe anterolateral apical hypokinesis, elevated left ventricular end-diastolic pressure. After procedure, aspirin and heparin will be continued with addition of Lasix. Time Spent with Patient Time attestation: Total time spent providing and/or coordinating discharge services: Exam Vital Signs Temp Pulse Resp BP Pulse Ox O2 Del Method O2 Flow Rate 97.4 F 92 18 167/93 H 96 Nasal Cannula 2 09/28/24 13:07 09/28/24 13:45 09/28/24 13:45 09/28/24 13:45 09/28/24 13:45 09/28/24 13:45 09/28/24 13:45 Narrative Exam General: AOx3, no acute distress, able to speak full sentences HEENT: NC/AT, mucous membranes moist, bilateral sclera anicteric Cardiovascular: regular rate and rhythm, S1/S2 present, no murmurs appreciated Pulmonary: clear to auscultation bilaterally, no rales/rhonchi/wheezes Abdominal: soft, non-tender, non-distended, no rebound/guarding, normal bowel sounds present Musculoskeletal: 1+ bilateral lower extremity edema Skin: warm and dry, intact, no rashes Neuro: CN II-XII intact, no focal deficits Discharge Plan Plan Patient Disposition: [facility] Pt Being Transferred to: [facility] Service Needed for Transfer: Cardiovascular/Thoracic Surg Prescriptions/Referrals Prescriptions/Med Rec: No Action levothyroxine 75 mcg Tablet 75 mcg PO QDAY sennosides-docusate sodium [Colace 2-In-1] 8.6-50 mg tablet 1 tab-cap PO QDAY PRN (Reason: constipation) Qty: 30 0RF oxybutynin chloride 10 mg tablet extended release 24hr 10 mg PO QDAY diltiazem HCl 180 mg capsule,extended release 24hr PO Patient Comments: take 1 capsule by mouth once daily diltiazem HCl 180 mg capsule,extended release 24hr 180 mg PO QDAY losartan 100 mg tablet 100 mg PO QDAY Patient Comments: take 1 tablet by mouth once daily atenolol 50 mg tablet 50 mg PO QDAY timolol maleate 0.5 % drops OPHTHALMIC (EYE) atorvastatin 40 mg tablet 40 mg PO HS Qty: 30 0RF aspirin 81 mg Tablet,Delayed Release (Dr/Ec) 81 mg PO QDAY Qty: 30 0RF hydralazine 50 mg tablet 50 mg PO TID Qty: 90 0RF clopidogrel 75 mg tablet 75 mg PO QDAY Qty: 30 0RF Referrals: Miya Orlando MD [Primary Care Provider] - Patient/Caregiver Discharge Instructions Print Language: Portuguese Stand Alone Forms: [facility] Award Info., Patient Portal Info Letter Discharge Order Discharge Orders: Discharge (Routine); Ordered 09/29/24 Ordered By: Markel (HOSPITALIST) Alex Quality Discharge Quality Measures VTE prophylaxis Attestestation Attestation Face to face evaluation was performed by me. I have personally seen and examined the patient. I discussed the assessment and plan with the entire medicine team. I reviewed available medical records, imaging studies, laboratory results. I agree with the above subjective data, objective findings, assessment and plan except as corrected by me or noted below #Acute coronary syndrome #New onset CHF, likely secondary to ischemic cardiomyopathy #Essential hypertension #PVD #Hyperlipidemia #CKD stage III A Continue meds as ordered S/p laborer aquatic life with Dr Guy- LM disease, plan to transfer to outside hospital for cabg evaluation More than > 30 minutes spent on the encounter
--- NOTE | 2024-09-28 15:02 | PC.SS ---
Rounding Note: Plan is to transfer the patient to [facility].
--- NOTE | 2024-09-28 15:31 | ESCONSULT_ITS ---
RE: UNIQUE BECKWITH : 1935 DATE OF CONSULTATION: 09/27/2024 CONSULTING PHYSICIANS: Hospitalist, emergency room physician REASON FOR CONSULTATION: Evaluation of shortness of breath, acute non-ST segment elevation myocardial infarction, clinically shortness of breath. CHIEF COMPLAINT: Shortness of breath. HISTORY OF PRESENT ILLNESS: The patient is an 89-year-old female with a past medical history of known CAD, hypertension, and hypercholesterolemia who has had a stent placement in the right coronary artery about 5 years ago, doing fairly well until the last 2 weeks. She has severe shortness of breath, progressive weakness, shortness of breath, and some atypical chest tightness. Prior to 2 weeks ago, she was apparently fine. EKG showed evidence of recent anterolateral myocardial infarction, poor R wave progression, and wide QRS complex, nonspecific IVCD. Troponin level, however, steadily going up 1.8 and 1.9 suggestive of acute non-ST segment elevation myocardial infarction, admitted to the hospital started on aspirin, heparin, and Lasix. Her BNP level was also significantly elevated in remission. She is feeling a little better, still having shortness of breath or orthopnea. ALLERGIES: NO ALLERGIES LISTED. MEDICATIONS: Presently she is started on aspirin, heparin, and Lasix. PAST MEDICAL HISTORY: CAD, stent placement of the right coronary artery, hypertension, and hypercholesterolemia. SOCIAL HISTORY: The patient lives by herself, , does not smoke, drink alcoholic beverages. FAMILY HISTORY: Noncontributory. REVIEW OF SYSTEMS: CARDIOVASCULAR: Increasing shortness of breath from some chest tightness for the last 2 weeks. GASTROINTESTINAL: No history of nausea or vomiting. GENITOURINARY: No history of frequency or dysuria PHYSICAL EXAMINATION: GENERAL: Elderly, thin-built female, alert and awake, in no acute distress. VITAL SIGNS: Blood pressure 150/80, pulse rate is 80 regular, respirations 16 and temperature is normal. HEENT: Head is atraumatic and normocephalic. Eyes, normal. ENT, normal. NECK: Supple. No JVD or carotid pulses. JVD is present 5 cm . LUNGS: Decreased breath sounds and bilateral crackles at the bases. HEART: S1 and 2 regular. S4 gallop heard. ABDOMEN: Obese, thin and soft. No organomegaly EYES: Right eye she is blind, left eye appears normal. DIAGNOSTIC DATA: EKG showed sinus rhythm, recent anterolateral myocardial infarction with poor R wave progression in pericardial leads, wide QRS complex, IVCD, nonspecific left bundle branch type. Cardiac enzymes; troponin is slightly elevated. BNP is markedly elevated. IMPRESSION/ASSESSMENT: 1. Acute non-ST segment elevation, myocardial infarction. 2. Acutely decompensated possible systolic heart failure with ischemic cardiomyopathy expecting multivessel coronary artery disease. 3. Hypertension. 4. Hypercholesterolemia. RECOMMENDATIONS: Continue aspirin and heparin, statin therapy. We will initiate Plavix after angiogram since the patient may have multivessel coronary artery disease or high-grade stenosis of the proximal LAD or left main. I would like to thank for referring this patient for cardiovascular evaluation. We will be glad to follow the patient with you. Arrange for urgent coronary angiogram, cardiac catheterization in the morning on 09/28/2024. DT: 09:13:37 TT: 15:20:00 Ref: [id number] - TID: [id number] [email or web address]
--- NOTE | 2024-09-28 16:06 | PC.NURSE ---
hand off report given to marcie canada. dressings on the right groin and right wrist are clean dry and intact. both the wrist and groin on the right are soft, non tender, flat, and no hematoma present. patient transfer via gurney to room. patient alert and oriented.
[2024-09-28] MEDS: POTASSIUM CHL 10 mEq IVPB 10 MEQ/100 ML BAG 100 MEQ IV (16:23)
--- NOTE | 2024-09-28 16:48 | PC.SS ---
OPTICAL LENS MANUFACTURING TECH conducted bedside contact with the patient conduct initial assessment and to discuss discharge planning.? Patient confirmed demographic information.? Patient resides alone at home.? Patient has friend, Grecia Fly ; who checks on the patient regularly.? Friend provides transportation on behalf of the patient.? Patient utilizes a walker to assist with ambulation.? Patient does not utilize home oxygen.? Patient possesses the ability to complete ADL?s independently.? Patient?s surrogate medical decision maker is friend, Greciasouth Bill.? In addition, Grecia Bill; is the patient?s medical POA.? Patient?s PCP is Miya Agrawal.? Patient?s last repairer is Dr. Doan.? Patient utilizes [facility] for medication services.? Plan is for the patient to return home at the time of discharge.? Family will provide transportation on behalf of the patient. No discharge needs identified by the patient.? No further intervention required at this time, transition social worker will be available to address any further concerns.? Next of Kin: Grecia Bill D/C Plan: Home
--- NOTE | 2024-09-28 17:00 | PC.NURSE ---
resume pt. care.pt.awake,alert and oriented.no resp. distress noted.denies pain or discomfort.dressing to R.groin and R.wrist dry and intact.lee cath draining clear yellow urine.will continue to monitor.
[2024-09-28] MEDS: POTASSIUM CHL 10 mEq IVPB 10 MEQ/100 ML BAG 70 MEQ IV (17:34)
[2024-09-28] MEDS: ASPIRIN EC 81 MG TABEC PO (20:04)
[2024-09-29] VITALS: BP 112/65; PULSE 91; RESP 14; TEMP 36.6; O2SAT 91
[2024-09-29] MEDS: Heparin/D5w 25K 250 ML Ivpb 25,000 UNIT/250 ML BAG 7.543 UNIT IV (00:42)
[2024-09-29 04:00] VITALS: BP 142/89; PULSE 83; RESP 19; TEMP 36.5; O2SAT 93
[2024-09-29 06:00] VITALS: BMI 27.1
[2024-09-29 06:35] LABS: Basophils % (Auto) 0 % (0-2.5); Eosinophils # (Auto) 0.1 Thou/mm3 (0.0-0.5); Eosinophils % (Auto) 1 % (0-10); Hematocrit 28.9 % (36.0-46.0); Hemoglobin 9.8 g/dL (12.0-16.0); Immature Granulocytes % (Auto) 2 % (0-0); Immature Granulocytes Auto 0.14 Thou/mm3 (0.00-0.00); Immature Reticulocyte Fraction 44.5 % (3.0-15.9); Lymphocytes # (Auto) 0.9 Thou/mm3 (1.0-4.8); Lymphocytes % (Auto) 9 % (10-50); Mean Corpuscular HGB Conc 33.9 g/dl (31.0-37.0); Mean Corpuscular Hemoglobin 20.3 pg (25.0-35.0); Mean Corpuscular Volume 60 fL (80-100); Monocytes # (Auto) 1.1 Thou/mm3 (0.0-0.8); Monocytes % (Auto) 12 % (0-12); Neutrophils # (Auto) 7.4 Thou/mm3 (1.8-7.7); Neutrophils % (Auto) 77 % (37-80); Nucleated Red Blood Cell % 2 /100 WBC (0); Platelet Count 215 Thou/mm3 (140-440); RDW Standard Deviation 33.5 fL (36.4-46.3); Red Blood Count 4.83 Miln/mm3 (4.00-5.20); Reticulocyte % (Auto) 1.7 % (0.5-1.5); Reticulocyte Absolute Auto 80.7 Biln/L (25.0-75.0); Reticulocyte Hgb Content 25.6 pg (28.0-35.0); White Blood Count 9.6 Thou/mm3 (3.6-11.0)
[2024-09-29 06:48] LABS: Alanine Aminotransferase 11 U/L (10-49); Albumin, Serum 4.1 gm/dL (3.4-4.8); Alkaline Phosphatase 57 U/L (46-116); Anion Gap 15 (7-16); Aspartate Amino Transferase 48 U/L (0-34); BUN/Creatinine Ratio 15 Ratio (12-20); Bilirubin,Total 1.6 mg/dL (0.3-1.2); Blood Urea Nitrogen 20 mg/dL (9-23); Calcium 9.2 mg/dL (8.3-10.6); Calcium (Corrected) 9.2 mg/dL (8.5-10.1); Carbon Dioxide 27.2 mMol/L (20.0-31.0); Chloride 98 mMol/L (98-107); Creatinine (Component) 1.3 mg/dL (0.6-1.3); Globulin 2.1 gm/dL (2.3-3.5); Glucose 109 mg/dL (74-106); Osmolality,Calculated 283 (275-295); Potassium 3.3 mMol/L (3.4-5.1); Sodium 140 mMol/L (136-145); Total Protein 6.2 gm/dL (5.7-8.2); eGFR 40 See Note
[2024-09-29 06:53] LABS: Partial Thromboplastin Time 63.3 Seconds (22.0-36.0)
--- NOTE | 2024-09-29 07:04 | PC.CC ---
DC summary faxed to [facility]
--- NOTE | 2024-09-29 07:06 | PC.NURSE ---
i called an updated point of cantact and power of commercial attorney of patient transferring to [facility] today.
--- NOTE | 2024-09-29 07:12 | PC.NURSE ---
Per wood gouger Dr. Guy may hold heparin infusion for transfer transport and to restart upon arrival at receiving hospital
[2024-09-29 08:00] VITALS: BP 135/77; PULSE 81; PULSE 87; RESP 29; TEMP 36.6; O2SAT 96
[2024-09-29 08:17] VITALS: BP 135/77; PULSE 87
[2024-09-29] MEDS: PANTOPRAZOLE 40 MG TABLET PO (08:17)
[2024-09-29] MEDS: VALSARTAN 40 MG TABLET PO (08:17)
[2024-09-29] MEDS: METOPROLOL SUCCINATE XL 25 MG TABCR PO (08:17)
[2024-09-29] MEDS: ATORVASTATIN CALCIUM 20 MG TABLET 40 MG PO (08:17)
[2024-09-29] MEDS: POTASSIUM CHLORIDE 20 mEq TABCR 40 MEQ PO (08:19)
--- NOTE | 2024-09-29 08:24 | ESPR_ITS ---
RE: UNIQUE BECKWITH : 1935 DATE OF SERVICE: 09/29/2024 SUBJECTIVE: The patient is an 89-year-old lady with a history of CAD stent placement, hypertension, and hypercholesterolemia, came to the hospital with severe shortness of breath and chest pressure. Cardiac workup including coronary angiogram showed evidence of left main 95% stenosis and origin of the left anterior descending artery 99% stenosis, circumflex artery origin involved 90% stenosis. Right coronary artery stent patent. The patient has severe LV dysfunction. Ejection fraction 25%. The patient is considered high risk for PCI. Recommended to have left main stent placement. The patient does not want to have bypass surgery at advanced age, although heavily calcified portion of the aorta, not a good candidate for bypass surgery. The patient will be transferred to [facility] for left ventricular assisted device and high-risk PCI of the left main, LAD, circumflex arteries. The patient was explained the risks, benefits, alternatives. She agreed to have the procedure performed. We will get a cardiac arrest surgery consultation today after transfer and possibly performed the PCI tomorrow. The patient is otherwise doing fairly well, not complaining of any chest pain or shortness of breath. She has some epigastric pain today. She was given Lasix yesterday with improvement of shortness of breath. Potassium is down to 3.3. OBJECTIVE: Vital Signs: Blood pressure 140/89 mmHg, pulse 83, respirations 16, temperature normal. Neck: Supple. No JVD. Carotid pulse felt. There are no bruits. Chest: Symmetrical. Lungs: Decreased breath sounds. No rales. Heart: S1 and S2, regular. S4 gallop heard. Abdomen: Thin and soft. Extremities: No edema. IMPRESSION: 1. Acute coronary syndrome. 2. [id number] systolic heart failure with ischemic cardiomyopathy, ejection fraction 20-25%. 3. 90% left main, LAD, circumflex artery stenosis, complex lesion. Will require LVAD and high-risk PCI. RECOMMENDATIONS: 1. Transfer the patient to [facility] today. 2. We will also plan for PCI tomorrow. 3. Cardiothoracic surgery consultation will be obtained. DT: 07:32:19 TT: 08:22:00 Ref: [id number] - TID: [id number]
[2024-09-29 08:57] LABS: Path Review Blood Smear Sent to Pathologist
[2024-09-29] MEDS: TICAGRELOR 90 MG TABLET 180 MG PO (09:12)
--- NOTE | 2024-09-29 09:21 | PC.NURSE ---
Report called to receiving nurse Gena RN @ [facility]. Questions asked and answered to satisfaction. Transport time pending.
--- NOTE | 2024-09-29 09:50 | ESPR_ITS ---
<Statement entered by Demetris Quick MD - 09/29/24 12:11> Senior Resident Attestation: I supervised/discussed management plan with diversity intern physician Dr. Riggins, and was involved in the care of this patient. I personally saw and examined the patient and discussed the assessment and plan with the entire medicine team, including my attending. I agree with the assessment and plan as documented. Patient's care was discussed with attending physician, Dr. Johnson. Demetris Quick MD PGY-2. 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 States that she has been having difficulty ambulating with associated chest discomfort that she describes as substernal and pressure-like that does not radiate. Denies orthopnea and paroxysmal nocturanl dyspnea. 09/28: Seen and examined at bedside. Patient sitting comfortably in bed on room air and does not endorse any chest discomfort. After [facility], now requesting transfer on behalf of cardiology recommendations to [facility] for cardiac thoracic surgery consultation due to findings; which included critical 95% stenosis in distal left main coronary artery and proximal left anterior descending artery, indication for CABG. Additonal findings include EF 20 to 25%, severe anterolateral apical hypokinesis, elevated left ventricular end- diastolic pressure. After procedure, aspirin and heparin will be continued with addition of Lasix. Transfer orders and DC summary placed. 09/30: No acute overnight events noted. Seen and examined at bedside and states that she has not had any chest discomfort or shortness of breath since being admitted. Transfer process started on 09/29 and at this time patient has been accepted, just pending transfer. Otherwise, patient without having complaints at this time other than being n.p.o. Exam Vital Signs Temp Pulse Resp BP Pulse Ox O2 Del Method O2 Flow Rate 97.8 F 87 29 H 135/77 H 96 Room Air 2 09/29/24 08:00 09/29/24 08:17 09/29/24 08:00 09/29/24 08:17 09/29/24 08:00 09/29/24 08:00 09/28/24 13:45 Narrative Exam General: AOx3, no acute distress, able to speak full sentences HEENT: NC/AT, mucous membranes moist, bilateral sclera anicteric Cardiovascular: regular rate and rhythm, S1/S2 present, no murmurs appreciated Pulmonary: clear to auscultation bilaterally, no rales/rhonchi/wheezes Abdominal: soft, non-tender, non-distended, no rebound/guarding, normal bowel sounds present Musculoskeletal: 1+ bilateral lower extremity edema Skin: warm and dry, intact, no rashes Neuro: CN II-XII intact, no focal deficits Objective Labs 09/29/24 05:30 09/29/24 05:30 Labs: Laboratory Results - last 24 hr 09/28/24 09/28/24 09/28/24 09:25 13:27 22:00 WBC RBC Hgb Hct MCV MCH MCHC RDW Std Deviation Plt Count Neut % (Auto) Lymph % (Auto) [place] % (Auto) Eos % (Auto) Baso % (Auto) Neut # (Auto) Lymph # (Auto) [place] # (Auto) Eos # (Auto) Baso # (Auto) Immature Gran # (Auto) Absolute Nucleated RBC Immature Gran % Nucleated RBC % Smear Path Review Retic Count (auto) Absolute Retic Immature Retic Fraction Retic Hgb Content CHr APTT 75.2 H D 21.7 L D 85.0 H D Sodium Potassium Chloride Carbon Dioxide Anion Gap BUN Creatinine Estim Creat Clear Calc eGFR BUN/Creatinine Ratio Glucose Calculated Osmolality Lactic Acid 2.6 H Calcium Corrected Calcium Phosphorus Magnesium Total Bilirubin AST ALT Alkaline Phosphatase Total Protein Albumin Globulin Albumin/Globulin Ratio 09/29/24 05:30 WBC 9.6 RBC 4.83 Hgb 9.8 L Hct 28.9 L MCV 60 L MCH 20.3 L MCHC 33.9 RDW Std Deviation 33.5 L Plt Count 215 Neut % (Auto) 77 Lymph % (Auto) 9 L [place] % (Auto) 12 Eos % (Auto) 1 Baso % (Auto) 0 Neut # (Auto) 7.4 Lymph # (Auto) 0.9 L [place] # (Auto) 1.1 H Eos # (Auto) 0.1 Baso # (Auto) 0.0 Immature Gran # (Auto) 0.14 H Absolute Nucleated RBC 0.20 H Immature Gran % 2 H Nucleated RBC % 2 H Smear Path Review Sent to Pathologist Retic Count (auto) 1.7 H Absolute Retic 80.7 H Immature Retic Fraction 44.5 H Retic Hgb Content CHr 25.6 L APTT 63.3 H D Sodium 140 Potassium 3.3 L D Chloride 98 Carbon Dioxide 27.2 Anion Gap 15 BUN 20 Creatinine 1.3 Estim Creat Clear Calc 28.0 L eGFR 40 L BUN/Creatinine Ratio 15 Glucose 109 H Calculated Osmolality 283 Lactic Acid Calcium 9.2 Corrected Calcium 9.2 Phosphorus 4.0 Magnesium 2.0 Total Bilirubin 1.6 H AST 48 H ALT 11 Alkaline Phosphatase 57 Total Protein 6.2 Albumin 4.1 Globulin 2.1 L Albumin/Globulin Ratio 2.0 Quality Measures Quality Measures VTE prophylaxis Advance care planning discussed with:: patient Assessment & Plan Assessment Current Active Medications: Generic Name Dose Route Start Last Admin Trade Name Freq PRN Reason Stop Dose Admin Acetaminophen 650 mg 09/29/24 05:37 Acetaminophen 325 Mg Tablet PO 10/29/24 05:36 Q6HR PRN Fever >100.3 or pain Aspirin 81 mg 09/28/24 21:00 09/28/24 20:04 Aspirin Ec 81 Mg Tabec PO 10/28/24 20:59 81 mg HS LUIS Administration Atorvastatin Calcium 40 mg 09/28/24 09:00 09/29/24 08:17 Atorvastatin Calcium 20 Mg Tablet PO 10/28/24 08:59 40 mg QDAY LUIS Administration Heparin Sodium/Dextrose 25,000 unit in 250 mls @ 9.052 mls/hr 09/27/24 23:45 09/29/24 00:42 Heparin In D5w Ivpb IV 10/11/24 23:44 10 units/kg/hr .Q24H LUIS 7.543 mls/hr Administration Protocol 12 UNITS/KG/HR Metoprolol Succinate 25 mg 09/29/24 09:00 09/29/24 08:17 Metoprolol Succinate Xl 25 Mg Tabcr PO 10/29/24 08:59 25 mg QDAY LUIS Administration Pantoprazole Sodium 40 mg 09/29/24 09:00 09/29/24 08:17 Pantoprazole 40 Mg Tablet PO 10/29/24 08:59 40 mg QDAY LUIS Administration Valsartan 40 mg 09/29/24 09:00 09/29/24 08:17 Valsartan 40 Mg Tablet PO 10/29/24 08:59 40 mg QDAY LUIS Administration Plan Grecia Bacon is an 89-year-old female with PMHx of hyperlipidemia, peripheral vascular disease, essential hypertension, hypothyroidism, IBS, 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 States that she has been having difficulty ambulating with associated chest discomfort that she describes as substernal and pressure-like that does not radiate. Denies orthopnea and paroxysmal nocturanl dyspnea. Admitted for management of ACS. #Acute coronary syndrome Presents with shortness of breath and chest discomfort associated with activity, substernal, pressure-like. Troponin uptrending, currently peaked at 5.0. BNP greater than 3000. LDL 64. EKG showed ST elevations in leads V1 and V2. However, Dr. Guy reported that EKG is significant for subacute ID, but not STEMI. Received aspirin 325 mg x 1 and started on heparin drip. Also received Lasix 40 mg IV x 1. ? Cardiology consulted, appreciate recommendations ? Status post cardiac cath 09/28 showing left main disease and pending transfer for cardiothoracic surgery consultation ? Continue heparin drip, aspirin 81 mg, atorvastatin 40 mg ? Keep K > 4, Mg > 2 #New onset CHF, likely secondary to ischemic cardiomyopathy DDx: HFrEF versus HFpEF, TTE done on 2018 revealed LVEF 60%, no recent echo on EMR Chest x-ray significant for mild CHF, patient complained of SOB on exertion, BNP > 3280 Echo showed EF 20 to 25%, extensive anteroseptal apical akinesis with ischemic cardiomyopathy and severe LV systolic dysfunction. ? Cardiology consulted ? Consider Lasix ? Strict I's and O's, fluid restriction (1.2 L/day) #Mild hypomagnesemia, resolved Presented with magnesium of 1.5 Repleted with 4 g IV magnesium sulfate ? Daily a.m. labs for magnesium #Microcytic anemia Iron panel within normal limits. #CKD stage III A Creatinine 1.0, GFR of 48, previous GFR were less than 54 ? Renally dose medications ? Avoid nephrotoxic drugs ? Daily AM lab for CMP and electrolyte panel #Mild hyperbilirubinemia #Mild transaminitis Denies any abdominal symptoms Total bilirubin 1.6, AST 40 ? Monitor daily a.m. labs for liver panel #Essential hypertension #PVD #Hyperlipidemia ? Started on atorvastatin 40 mg daily at night ? Continue to monitor blood pressure #Hypothyroidism ? Resume home medication after medication reconciliation Hospital management: Disposition: pending transfer to [facility] for thoracic surgery consultation Diet: NPO Lines: PIV DVT prophylaxis: heparin drip GI prophylaxis: pantoprazole CODE STATUS: DNR ----- Plan discussed with attending physician Dr. Johnson and senior resident physician Dr. Abdelrahman Riggins MD PGY-1 Internal Medicine Attending Provider Attestation/Addendum Face to face evaluation was performed by me. I have personally seen and examined the patient. I discussed the assessment and plan with the entire medicine team. I reviewed available medical records, imaging studies, laboratory results. 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
[2024-09-29 12:00] VITALS: BP 131/78; PULSE 74; RESP 17; TEMP 36.3; O2SAT 95
== END 2024-09-29 12:35 | disposition short-term general hospital (02) | DRG 280 ==
LOC: SERX 15:47 → SERHOLD 22:52 → S2NX 09-28 00:17
PROVIDERS: Internal Medicine Cardiovascular Disease; Nurse Practitioner Primary Care; Physician Assistant; Student in an Organized Health Care Education/Training Program; Admitting Provider Student in an Organized Health Care Education/Training Program; Emergency Provider Family Medicine; PCP Internal Medicine; Visit Provider Internal Medicine
PROC: 4A023N7 Measurement of Cardiac Sampling and Pressure, Left Heart, Percutaneous Approach (ICD-10-PCS; principal; 2024-09-28 12:00)
DX: I21.4 Non-ST elevation (NSTEMI) myocardial infarction (principal); I50.23 Acute on chronic systolic (congestive) heart failure; I13.0 Hypertensive heart and chronic kidney disease with heart failure and stage 1 through stage 4 chronic kidney disease, or unspecified chronic kidney disease; E78.00 Pure hypercholesterolemia, unspecified; N18.31 Chronic kidney disease, stage 3a; I25.10 Atherosclerotic heart disease of native coronary artery without angina pectoris; Z95.5 Presence of coronary angioplasty implant and graft; E03.9 Hypothyroidism, unspecified; H54.61 Unqualified visual loss, right eye, normal vision left eye; E83.42 Hypomagnesemia; I73.9 Peripheral vascular disease, unspecified; Z66 Do not resuscitate; Z86.73 Personal history of transient ischemic attack (TIA), and cerebral infarction without residual deficits
CPT/HCPCS: 36415; 71045; 80053; 80061; 82728; 83036; 83540; 83550; 83605; 83690; 83735; 83880; 84100; 84484; 85025; 85046; 85610; 85730; 87811; 93005; 93306; 96374; 99285; J0153; J0171; J0282; J0461; J1643; J1644; J1940; J2250; J2310; J2371; J3010; J3475; J3480; J3490; A9270; J2305

== ENCOUNTER 2024-11-01 19:36 | Emergency (ER) | payer OTHER, SELFPAY ==
--- NOTE | 2024-11-01 19:50 | PD.EDADULT ---
ED General RME/HPI General Chief complaint: Arrhythmia/Palpitations Stated complaint: DR SENT FOR EKG Time Seen by Provider: 11/01/24 19:47 Arrival date/time: 11/01/24 19:36 RME / HPI RME / HPI narrative: Dr. Solis?s Main ED Evaluation: 89yo female with a history of History of CAD s/p stent placement, HTN, HLD, recent NV, PVD, hypothyroidism BIBA from [facility] presents to the ED for a chief complaint of bradycardia. Per EMS, facility staff found the patient to be bradycardic in the 40s. Facility staff spoke with the patient's provider and were told to send the patient over for evaluation since they are unable to have EKGs performed at their facility. Patient denies any chest pain, shortness of breath, dizziness, lightheadedness or any other associated symptoms. NKA. Related Data Home Medications ?Medication ?Instructions ?Recorded ?Confirmed levothyroxine 75 mcg tablet 75 mcg PO QDAY 11/26/20 03/12/24 atenolol 50 mg tablet 50 mg PO QDAY 03/12/24 03/12/24 Held on 03/13/24. Instructions: Resume on 03/27/24. Hold until follow up with your Pigment Pusher diltiazem HCl 180 mg 180 mg PO QDAY 03/12/24 03/12/24 capsule,extended release 24 hr Held on 03/13/24. Instructions: Resume on 03/27/24. Hold until follow up with your Pigment Pusher diltiazem HCl 180 mg mg PO 03/12/24 03/12/24 capsule,extended release 24 hr Held on 03/13/24. Instructions: Resume on 03/27/24. Hold until follow up with your Pigment Pusher losartan 100 mg tablet 100 mg PO QDAY 03/12/24 03/12/24 oxybutynin chloride 10 mg 10 mg PO QDAY 03/12/24 03/12/24 tablet,extended release 24 hr timolol maleate 0.5 % eye drops drp ophthalmic (eye) 03/13/24 Previous Rx's ?Medication ?Instructions ?Recorded sennosides 8.6 mg-docusate sodium 1 tab-cap PO QDAY PRN constipation 11/18/23 50 mg tablet (Colace 2-In-1) #30 tabs aspirin 81 mg tablet,delayed 81 mg PO QDAY #30 tabs 03/13/24 release atorvastatin 40 mg tablet 40 mg PO HS #30 tabs 03/13/24 clopidogrel 75 mg tablet 75 mg PO QDAY stroke prevention 03/13/24 #30 tabs hydralazine 50 mg tablet 50 mg PO TID #90 tabs 03/13/24 Allergies Allergy/AdvReac Type Severity Reaction Status Date / Time No Known Allergies Allergy Verified 09/27/24 13:43 Review of Systems Review of Systems Systems Reviewed: All systems reviewed, normal except as documented ED Exam Narrative Physical exam: GENERAL APPEARANCE: AxOx4, generally well-appearing, no acute distress. HEENT: NC, AT. MMM. EOMI, clear conjunctiva, oropharynx clear. NECK: Supple without lymphadenopathy. No stiffness or restricted ROM. HEART: Normal rate and regular rhythm, normal S1/S1, no m/r/g LUNGS: CTAB, moving air well. No crackles or wheezes are heard. ABDOMEN: Soft, nontender, nondistended with good bowel sounds heard. BACK: No midline C/T/L spine pain or deformity, No CVAT, no obvious deformity. EXTREMITIES: Without cyanosis, clubbing or edema. MUSCULOSKELETAL: FROM of all major joints, no chest tenderness NEUROLOGICAL: Grossly nonfocal. Alert and oriented, moving all 4 extremities. CN not formally tested but appear grossly intact. Skin: Warm and dry without any rash. Course Quality Measures none Orders Category Date Time Status EKG (ED ONLY) *Do not use* NOW Care 11/01/24 19:56 Completed EKG (ED Only) Stat Exams 11/01/24 19:55 Ordered Vital Signs Vital signs: Vital Signs Temperature 97.8 F 11/01/24 20:08 Pulse Rate 69 11/01/24 20:08 Respiratory Rate 18 11/01/24 20:08 Blood Pressure 127/46 L 11/01/24 20:08 Pulse Oximetry (%) 97 11/01/24 20:08 Oxygen Delivery Method Room Air 11/01/24 20:08 Discharge Plan Plan Patient Disposition: Xfer Skilled Nsg Fac (SNF) Prescriptions/Referrals Prescriptions/Med Rec: No Action levothyroxine 75 mcg Tablet 75 mcg PO QDAY sennosides-docusate sodium [Colace 2-In-1] 8.6-50 mg tablet 1 tab-cap PO QDAY PRN (Reason: constipation) Qty: 30 0RF oxybutynin chloride 10 mg tablet extended release 24hr 10 mg PO QDAY diltiazem HCl 180 mg capsule,extended release 24hr PO Patient Comments: take 1 capsule by mouth once daily diltiazem HCl 180 mg capsule,extended release 24hr 180 mg PO QDAY losartan 100 mg tablet 100 mg PO QDAY Patient Comments: take 1 tablet by mouth once daily atenolol 50 mg tablet 50 mg PO QDAY timolol maleate 0.5 % drops OPHTHALMIC (EYE) atorvastatin 40 mg tablet 40 mg PO HS Qty: 30 0RF aspirin 81 mg Tablet,Delayed Release (Dr/Ec) 81 mg PO QDAY Qty: 30 0RF hydralazine 50 mg tablet 50 mg PO TID Qty: 90 0RF clopidogrel 75 mg tablet 75 mg PO QDAY Qty: 30 0RF Problem List Clinical Impression: Ventricular premature beats Patient/Caregiver Discharge Instructions Education Materials: ED Heart Disease Education Additional Instructions: Follow-up with your retread builder in 1-2 days for recheck. You can return to the emergency department sooner if symptoms worsen or for any new or concerning issues. Print Language: Filipino Stand Alone Forms: [employer] Award Info., Patient Portal Info Letter MDM Narrative MDM hospital course (for use when minimal MDM required): Scribe Attestation: 11/01/24 Judith Paul am scribing for and in the presence of Dr. Solis. 89yo female presents to the ED due to being bradycardic in the 40s per SNF staff. Patient's provider requested the patient to be sent out for an EKG. EKG does not show any acute ischemic changes. Patient does not have any medical complaints, including no chest pain or shortness of breath. Patient is stable to be discharged back to the SNF. 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 Labs Labs: none Imaging Imaging interpretation: other (none) Medication Administration(s) none Diagnosis Differential Diagnosis ED Complaint MDM: symptomatic bradycardia,electrolyte abnormality, medical screening
[2024-11-01 20:04] VITALS: PULSE 58; RESP 14; O2SAT 97
[2024-11-01 20:08] VITALS: BP 127/46; PULSE 69; RESP 18; TEMP 36.6; O2SAT 97
[2024-11-01 20:26] VITALS: PULSE 72; BMI 26.6
--- NOTE | 2024-11-01 20:28 | PC.NURSE ---
PATIENT DENIES CHEST PAIN, PALPICATION, AND PATIENT STATES NO COMPLAINTS. PATIENT STATES SHE WAS ONLY HERE FOR AN EKG.
[2024-11-01 21:19] VITALS: BP 128/40; PULSE 74; RESP 17; TEMP 36.4; O2SAT 97
--- NOTE | 2024-11-01 21:28 | PC.NURSE ---
REPORT GIVEN TO KAY MADSEN AT [facility] VIA TELEPHONE.
== END 2024-11-01 21:34 | disposition skilled nursing facility (03) ==
LOC: SERX 20:52
PROVIDERS: Emergency Provider Emergency Medicine
DX: I49.3 Ventricular premature depolarization (principal); I45.10 Unspecified right bundle-branch block; I10 Essential (primary) hypertension; I25.10 Atherosclerotic heart disease of native coronary artery without angina pectoris; Z95.5 Presence of coronary angioplasty implant and graft
CPT/HCPCS: 93005; 99283